=== PATIENT | female | born 1945 | race Caucasian/White ===

== ENCOUNTER 2021-03-28 07:08 | Day surgery (SDC) | payer OTHER ==
[~2021-03-28 07:08] MED LIST: COZAAR25 MG PO; MILLIPRED5 MG PO; SIMVASTATIN5 MG PO
== END 2021-03-28 15:15 | disposition home or self-care (01) ==
LOC: CIR.AMB 07:08
PROVIDERS: ATTEND Orthopaedic Surgery Hand Surgery
DX: S52.532A Colles' fracture of left radius, initial encounter for closed fracture (principal); Z20.822 Contact with and (suspected) exposure to COVID-19
CPT/HCPCS: 25609; 25118; 25280; C1776